=== PATIENT | female | born 1995 | race Caucasian/White ===

== ENCOUNTER 2023-06-20 12:51 | Emergency (ER) | payer OTHER ==
[~2023-06-20] VITALS: Ht 170.2 cm; Wt 61.0 kg
[2023-06-20 12:53] VITALS: O2SAT 99
[2023-06-20 15:14] LABS: CHLORIDE 106 mEq/L (98-107); POTASSIUM 3.9 mEq/L (3.5-5.1); SODIUM 140 mEq/L (136-145)
[2023-06-20 15:15] LABS: CALCIUM 8.9 mg/dL (8.7-10.4)
[2023-06-20 15:16] LABS: HEMATOCRIT. 40.8 % (36.0-48.0); HEMOGLOBIN. 13.7 g/dL (12.0-16.0); MEAN CORPUSCULAR HEMOGLOBIN 31.1 pg (28.0-32.0); MEAN CORPUSCULAR HGB CONC 33.7 g/dL (31.0-37.0); MEAN CORPUSCULAR VOLUME 92.5 fL (81.0-99.0); MEAN PLATELET VOLUME 8.7 fl (7.4-10.4); PLATELET 255 x1000/uL (130-400); RED BLOOD CELL COUNT 4.41 mill/uL (4.2-5.4); RED CELL DISTRIBUTION WIDTH 13.7 % (11.6-14.6); WHITE BLOOD COUNT 10.8 x1000/uL (4.5-11.0)
[2023-06-20 15:18] LABS: DIFFERENTIAL COMMENT 1
[2023-06-20 15:20] LABS: CREATININE 0.9 mg/dL (0.6-1.0); GLUCOSE 95 mg/dL (70-105); UREA NITROGEN BLOOD 13 mg/dL (9-23)
[2023-06-20 15:22] LABS: ALANINE AMINOTRANSFERASE 20 IU/L (10-49); ALBUMIN 4.7 g/dL (3.2-4.8); ASPARTATE AMINOTRANSFERASE 33 IU/L (<34); BILIRUBIN DIRECT 0.2 mg/dL (<=3.0)
[2023-06-20 15:23] LABS: BILIRUBIN TOTAL 0.8 mg/dL (0.1-1.0); PROTEIN TOTAL 7.6 g/dL (6.0-8.3)
[2023-06-20 15:35] LABS: CARBON DIOXIDE 25 mEq/L (21-32)
[2023-06-20 16:20] LABS: HCG SCREEN NEGATIVE
[2023-06-20] MEDS ORDERED: MAG-55 MT (16:38)
[2023-06-20] MEDS ORDERED: ONDA4TAB11 PO (16:38)
[2023-06-20] MEDS ORDERED: FAMO-135 MT (16:38)
[2023-06-20] MEDS: MAGNESIUM/ALUMINUM HYDROXIDE/SIMETHICONE 30ML UDC PO ONE (16:47)
[2023-06-20] MEDS: FAMOTIDINE 20MG TABLET PO ONE (16:47)
[2023-06-20] MEDS: DICYCLOMINE HCL 10MG/ML 2ML VIAL IM ONE (16:48)
[2023-06-20] MEDS: ONDANSETRON 4MG ODT PO ONE (16:48)
[2023-06-20 18:34] VITALS: BP 122/76; PULSE 86; RESP 16; TEMP 98.4
[2023-06-20 18:45] LABS: PLATELET ESTIMATE NORMAL
== END 2023-06-20 17:56 | disposition home or self-care (01) ==
LOC: ER 12:51
DX: R11.2 Nausea with vomiting, unspecified (principal)
CPT/HCPCS: 99284; 80076; 80048; 84703; 83690; 85025; 36415; 96372; Q0162; J0500